=== PATIENT | female | born 1960 | race Caucasian/White ===

== ENCOUNTER → 2017-06-05 | Outpatient (REF) ==
[~2017-06-05] MED LIST: CALC-682 PO; CALCIUM; FLU20 PO; IBU600 PO; METHI10 PO; NOR5/325 PO; PEN250 PO; PER PO; [UNRECOGNIZED DRUG - CODE] PO
--- NOTE | 2017-06-05 13:45 | RADIOLOGY IMAGING REPORT ---
FACILITY: [facility] - [place] PATIENT NAME: Darling Rice : 1960 MR: [id number] V: [id number] EXAM DATE: ORDERING PHYSICIAN: JUANA DORSEY TECHNOLOGIST: Location: [facility] - [place] Patient: Darling Rice : 1960 Visit/Account:[id number] Date of Sevice: 06/05/2017 DEXA Scan Clinical history: Osteopenia, frequent steroid use. Comparison: DEXA scan from . LUMBAR SPINE: The bone mineral density (BMD) measured from L1-L4 correlates with a Z-score of -1 and a T-score of - 1.5 which is osteopenia as defined by the World Health Organization. The corresponding risk of fract ure in the lumbar spine is 3 times increased compared with a young adult reference population. This value has increased by 0.6 % since the prior study. More than 5% change is considered significant. HIP: Bone mineral density (BMD) measured in the LEFT total hip region correlates with a Z-score -1.6 and a T-score of -2.1 which is osteopenia as defined by the World Health Organization. The corresponding risk of fracture in the hip is 4-6 times increased compared to a young adult reference population. Th is value has decrease by 3.5 % since the prior study. More than 5% change is considered significant. T score left femoral neck -1.4 Bone mineral density (BMD) measured in the Femoral Neck region measures 0.837 g/cm?. IMPRESSION: 1. Lumbar spine: Osteopenia. There has been 0.6% increase in the bone mineral density since the pre vious exam. 2. Left Total Hip: Osteopenia. There has been 3.5% decrease in the bone mineral density since the p revious exam. 3. Femoral Neck: Bone Mineral Density is 0.837 g/cm? The next DEXA scan of this patient should include the following sites: L1-L4 and the left hip. FRAX? WHO Fracture Risk Assessment Tool link: <http://www.shef.ac.uk/FRAX/tool.jsp?locationValue=9> PLEASE NOTE: 1) The World Health Organization defines low BMD as follows: T-score Normal > -1 Osteopenia < -1 and > -2.5 Osteoporosis < -2.5 without fractures Established osteoporosis < -2.5 with fractures 2) In general, you may wish to consider: Diagnosis Treatment Follow-up DEXA Normal BMD Prevention 2-3 years Osteopenia Prevention/therapy 1-2 years Osteoporosis Therapy Yearly 3) Fracture risk estimated from the T-score is more accurate for vertebral fractures (often spontane ous) than for hip fractures. Report Dictated By: Marisabel Ta MD at 06/05/2017 1:38 PM Report E-Signed By: Marisabel Ta MD at 06/05/2017 1:40 PM WSN:[email or web address]
== END ==
LOC: RESP 01:52 → EDSTATUS 13:00
PROVIDERS: ATTEND Nurse Practitioner
DX: J44.0 Chronic obstructive pulmonary disease with (acute) lower respiratory infection (principal); G47.33 Obstructive sleep apnea (adult) (pediatric); M85.80 Other specified disorders of bone density and structure, unspecified site; J98.4 Other disorders of lung
CPT/HCPCS: 77080; 94060; 94726; 94729

== ENCOUNTER → 2017-08-02 | Outpatient (REF) ==
--- NOTE | 2017-08-02 17:37 | RADIOLOGY IMAGING REPORT ---
FACILITY: [facility] - [place] PATIENT NAME: Darling Rice : 1960 MR: [id number] V: [id number] EXAM DATE: ORDERING PHYSICIAN: JUANA DORSEY TECHNOLOGIST: Location: [facility] - [place] Patient: Darling Rice : 1960 Visit/Account:[id number] Date of Sevice: 08/02/2017 EXAMINATION: CT Thorax W/O Contrast With High Resolution imaging 08/02/2017 HISTORY: COPD. History of smoking. TECHNIQUE: High resolution CT chest protocol: A non-intravenous enhanced contiguous spiral scan was obtained through the chest. This was followed by inspiration and expiration 1 mm thick high-resolutio n axial images at 15 mm intervals, reconstructed using a high spatial resolution algorithm. One of the following dose optimization techniques was utilized in the performance of this exam: Autom ated exposure control; adjustment of the mA and/or kV according to the patient's size; or use of an i terative reconstruction technique. Specific details can be referenced in the facility's radiology C T exam operational policy. COMPARISON STUDIES: Chest x-ray 09/23/2015. FINDINGS: Lungs / pleura: Thickening of central bronchial oh. No substantial endobronchial material. No bron chiectasis. Lungs are well aerated apart from a mild degree of linear atelectasis or scarring in the lingular portion of the left upper lobe. No significant reticular interstitial lung disease. Mild emp hysematous lucencies. No parenchymal nodule or mass. Pleural spaces are clear. Mediastinum / ginny: negative Heart / pericardium: negative Vessels: Atherosclerosis including coronary calcifications along all 3 distributions. Musculoskeletal / Body wall: Degenerative changes in the spine. Lymph node assessment: negative Lower neck: negative Upper abdomen: negative IMPRESSION: 1. Bronchial wall thickening which may be chronic related to history of smoking although an acute exa cerbation bronchitis would be possible. 2. Mild emphysema. No findings of significant interstitial lung disease. 3. Coronary atherosclerosis is probably worse than average for age and gender. Report Dictated By: Donis Oden MD at 08/02/2017 5:27 PM Report E-Signed By: Donis Oden MD at 08/02/2017 5:34 PM WSN:[id number]
== END ==
LOC: CT 02:21
PROVIDERS: ATTEND Nurse Practitioner
DX: J44.9 Chronic obstructive pulmonary disease, unspecified (principal); Z87.891 Personal history of nicotine dependence
CPT/HCPCS: 71250

== ENCOUNTER 2017-12-27 15:41 | Emergency (ER) | payer SELFPAY ==
--- NOTE | 2017-12-27 15:45 | ER Report ---
History and Physical Time Seen By MD: 15:45 (GURU MARR DIRECTOR SALES-[employer]) Time Seen By MD: 15:55 (KRYSTLE PALACIO MD) HPI/ROS CHIEF COMPLAINT: Shortness of breath palpitations HISTORY OF PRESENT ILLNESS: 57-year-old female 35+ pack year smoker comes emergency Department today don't history of COPD on oxygen 2 L per nasal cannula 24 7 was at the outpatient [facility] for evaluation and Medications she was there was noted her pulse was in the 120s to 140s this is abnormal for her no history of cardiac abnormalities that she is aware of history of A. fib or a flutter patient is denying any chest pain but says she has been feeling somewhat more short of breath lately with exertional dyspnea patient denies any abdominal pain nausea vomiting diarrhea fever chills or additional complaints noted REVIEW OF SYSTEMS: Respiratory: Shortness of breath exertional dyspnea Cardiovascular: Palpitations no chest pain Gastrointestinal: No vomiting, no abdominal pain. Musculoskeletal: No back pain. Remainder of the 14 system rev: Yes (KRYSTLE PALACIO MD) Allergies: Coded Allergies: cyclobenzaprine (Verified Allergy, Unknown, 12/27/17) Home Meds Active Scripts Prednisone (PREDNISONE) 20 Mg Tablet, 40 MG PO QDAY, #10 TAB 0 Refills Prov:CRISTOBAL MORRISON MD 12/27/17 Reported Medications Meloxicam (MELOXICAM) 7.5 Mg Tablet, 15 MG PO QDAY 12/27/17 Albuterol Sulfate 90 Mcg/Act (PROAIR HFA 90 MCG/ACT) 8.5 Gm Hfa.aer.ad, 2 PUFF IH Q4-6H, INHALER 12/27/17 Acetaminophen (TYLENOL) 325 Mg Tablet, 325 MG PO, TAB 12/27/17 Fluticasone/Salmeterol (ADVAIR HFA 230-21 MCG INHALER) 1 Inh Inh, 1 INH INH 1- 2XD, INH 12/27/17 Discontinued Reported Medications Ibuprofen (Motrin) 600 Mg Tab, 600 MG PO TID, #30 05/10/11 Penicillin V Potassium (Penicillin Vk) 250 Mg Tab, 500 MG PO ACHS, #28 05/10/11 Oxycodone/Acetaminophen (OXYCODONE/ACETAMINOPHEN 5MG/325 MG) 5 Mg/325 Mg Tab, 1 - 2 TAB PO Q6H PRN, #30 05/10/11 Naproxen (Naproxen) 375 Mg Tablet, 375 MG PO, 0 Refills 01/04/07 Methimazole (Tapazole) 10 Mg Tab, 10 MG PO TID, 0 Refills 01/04/07 Reviewed Nurses Notes: Yes Old Medical Records Reviewed: Yes (KRYSTLE PALACIO MD) Hx Smoking: Yes (3-4 DAILY) Hx Substance Use Disorder: No Hx Alcohol Use: Yes ([employer]) ([facility]U MARR [facility] Constitutional Vital Sign - Last 24 Hours 12/27/17 15:47 Temp 99.7 Pulse 111 Resp 28 B/P (MAP) 121/99 Pulse Ox 74 O2 Delivery Room Air (KRYSTLE PALACIO MD) Physical Exam General Appearance: The patient is alert, has no immediate need for airway protection and no current signs of toxicity. No apparent distress Eyes: Pupils equal and round no injection. Respiratory: Distant breath sounds pursed lip breathing consistent with COPD exacerbation Cardiac: Irregular rhythm rate in the 120 to 1:30 range[ ] Gastrointestinal: Abdomen is soft and non tender, no masses, bowel sounds normal. Musculoskeletal: Neck: Neck is supple and non tender. Extremities have full range of motion and are non tender. Skin: No rashes or lesions. [ ] DIFFERENTIAL DIAGNOSIS: After history and physical exam differential diagnosis was considered for COPD exacerbation new-onset A. fib or a flutter myocardial infarction CHF exacerbation (KRYSTLE PALACIO MD) Medical Decision Making Data Points Result Diagram: 12/27/17 1601 12/27/17 1601 EKG/Imaging Imaging CTA CHEST WW/O CNTR (PULM ANG) COMPARISONS: CT chest without contrast dated August 02, 2017 ADDITIONAL PERTINENT HISTORY: Shortness of breath TECHNIQUE: Multiple axial images are obtained from the lung apices through the upper abdomen during the IV administration of contrast material. 2-D and 3-D reformatted images were obtained off the axial source data. One of the following dose optimization techniques was utilized in the performance of this exam: Automated exposure control; adjustment of the mA and/or kV according to the patient's size; or use of an iterative reconstruction technique. Specific details can be referenced in the facility's radiology CT exam operational policy. CONTRAST: 75mL of Isovue-370 FINDINGS: Lung parenchyma: Mild scarring involving the lingula. Minimal background emphysematous changes. No pulmonary masses or evidence of infiltrates. Scarring in the lingula is stable from previous exam. Pleural spaces: Negative. Heart, mediastinum and ginny: Negative. Cardiopulmonary vasculature: Pulmonary arterial structures are well opacified with contrast material. No evidence of pulmonary emboli. Mild atherosclerotic disease of the thoracic aortic arch and the origins of the great vessels. Central airways: Negative Thyroid, supra- clavicular, axillary regions: Negative. Surrounding soft tissues: Negative. Upper abdominal structures: Negative. Osseous structures: Spondylitic change involving the thoracic spine. No bony fractures. IMPRESSION: 1. No evidence of acute cardiopulmonary disease. 2. No evidence of pulmonary emboli. 3. Stable scarring involving the lingula. Report Dictated By: Khoi Hilario MD at 12/27/2017 5:30 PM (CRISTOBAL MORRISON MD) ED Course/Re-evaluation ED Course I assumed care of this patient at shift change after discussion with Dr. Palacio. CT angiogram of the chest done and negative. She feels better and would like to return home. We will start her on Prednisone 40mg once a day for 5 days. Recommended follow-up with the [facility]. No other changes at this time. Decision to Disposition Date: Dec 27, 2017 Decision to Disposition Time: 17:42 (CRISTOBAL MORRISON MD) Depart Departure Latest Vital Signs Vital Signs Date Time Temp Pulse Resp B/P (MAP) Pulse Ox O2 Delivery O2 Flow Rate FiO2 12/27/17 15:47 99.7 111 28 121/99 74 Room Air (KRYSTLE PALACIO MD) Impression: Primary Impression: COPD (chronic obstructive pulmonary disease) Condition: Improved Disposition: HOME OR SELF-CARE Referrals: JUANA DORSEY (PCP) New Scripts Prednisone (PREDNISONE) 20 Mg Tablet 40 MG PO QDAY, #10 TAB 0 Refills Prov: CRISTOBAL MORRISON MD 12/27/17 Patient Instructions: COPD (Chronic Obstructive Pulmonary Disease) (ED) Additional Instructions: No changes in medications at this time. Rest and increase fluid intake. Take Prednisone 20mg tablets, 2 tablets once a day for 5 days. Problem Qualifiers Primary Impression: COPD (chronic obstructive pulmonary disease) COPD type: unspecified COPD Qualified Codes: J44.9 - Chronic obstructive pulmonary disease, unspecified SONDGEROTH,GURU L DIRECTOR SALES-BC Dec 27, 2017 15:45 KRYSTLE PALACIO MD Dec 27, 2017 15:59 CRISTOBAL MORRISON MD Dec 27, 2017 17:11
[2017-12-27] MEDS ORDERED: MELO-205 PO (16:19)
[2017-12-27] MEDS ORDERED: ACET-1966 PO (16:19)
[2017-12-27] MEDS ORDERED: ADV230RPT INH (16:19)
[2017-12-27] MEDS ORDERED: ALBU8.5H IH (16:19)
[2017-12-27 16:25] LABS: PLATELET COUNT, AUTOMATED 245 K/uL (150-450)
[2017-12-27] MEDS ORDERED: methylPREDNIS SUCC 125 MG/2ML IVP ONE (16:35)
--- NOTE | 2017-12-27 16:49 | RADIOLOGY IMAGING REPORT ---
FACILITY: [facility] PATIENT NAME: Darling Rice : 1960 MR: [id number] V: [id number] EXAM DATE: ORDERING PHYSICIAN: KRYSTLE PALACIO TECHNOLOGIST: Location: [facility] Patient: Darling Rice : 1960 Visit/Account:[id number] Date of Sevice: 12/27/2017 CHEST PA AND LAT INDICATION: Shortness of breath COMPARISON: 09/23/2015 FINDINGS: Heart size within normal limits. There is no focal infiltrate or lobar consolidation. There is stable mild pulmonary hyperexpansion There is no pneumothorax or pleural effusion. IMPRESSION: 1. No acute cardiopulmonary process. Stable COPD Report Dictated By: Domenico Reyes at 12/27/2017 4:43 PM Report E-Signed By: Domenico Reyes at 12/27/2017 4:44 PM WSN:[id number]
[2017-12-27] MEDS ORDERED: NS(*) 0.9% 50 ML BAG 50 ML ONE (16:59)
[2017-12-27] MEDS ORDERED: IOPAMIDOL 76% 75 ML INFUS BTL 75 ML ONE (16:59)
[2017-12-27 17:18] VITALS: BP 120/76
--- NOTE | 2017-12-27 17:37 | RADIOLOGY IMAGING REPORT ---
[place] [facility] [place] Darling Rice : 1960 MR: [id number] V: [id number] EXAM DATE: ORDERING PHYSICIAN: KRYSTLE PALACIO TECHNOLOGIST: Location: [facility] Patient: Darling Rice : 1960 Visit/Account:[id number] Date of Sevice: 12/27/2017 CTA CHEST WW/O CNTR (PULM ANG) COMPARISONS: CT chest without contrast dated August 02, 2017 ADDITIONAL PERTINENT HISTORY: Shortness of breath TECHNIQUE: Multiple axial images are obtained from the lung apices through the upper abdomen during t he IV administration of contrast material. 2-D and 3-D reformatted images were obtained off the axial source data. One of the following dose optimization techniques was utilized in the performance of t his exam: Automated exposure control; adjustment of the mA and/or kV according to the patient's size; or use of an iterative reconstruction technique. Specific details can be referenced in the [facility] exam operational policy. CONTRAST: 75mL of Isovue-370 FINDINGS: Lung parenchyma: Mild scarring involving the lingula. Minimal background emphysematous changes. No pu lmonary masses or evidence of infiltrates. Scarring in the lingula is stable from previous exam. Pleural spaces: Negative. Heart, mediastinum and ginny: Negative. Cardiopulmonary vasculature: Pulmonary arterial structures are well opacified with contrast material. No evidence of pulmonary emboli. Mild atherosclerotic disease of the thoracic aortic arch and the or igins of the great vessels. Central airways: Negative Thyroid, supra- clavicular, axillary regions: Negative. Surrounding soft tissues: Negative. Upper abdominal structures: Negative. Osseous structures: Spondylitic change involving the thoracic spine. No bony fractures. IMPRESSION: 1. No evidence of acute cardiopulmonary disease. 2. No evidence of pulmonary emboli. 3. Stable scarring involving the lingula. Report Dictated By: Khoi Hilario MD at 12/27/2017 5:30 PM Report E-Signed By: Khoi Hilario MD at 12/27/2017 5:34 PM WSN:[id number]
[2017-12-27] MEDS ORDERED: PRED20TA6 PO (17:47)
[2017-12-27] MEDS ORDERED: predniSONE 20 MG TAB PO ONE (17:50)
--- NOTE | 2017-12-27 22:24 | EKG ---
FACILITY: [facility] PATIENT NAME: NATE BOONE : [id number] MR: [id number] V: [id number] EXAM DATE: ORDERING PHYSICIAN: KRYSTLE PALACIO TECHNOLOGIST: KRISSY Test Reason : SOB Blood Pressure : / mmHG Vent. Rate : 109 BPM Atrial Rate : 109 BPM P-R Int : 130 ms QRS Dur : 080 ms QT Int : 378 ms P-R-T Axes : 081 098 069 degrees QTc Int : 509 ms Sinus tachycardia with frequent premature ventricular complexes Rightward axis Prolonged QT Septal infarct , age undetermined Abnormal ECG No previous ECGs available Confirmed by Arnaldo Prieto ([id number]) on 12/27/2017 10:55:43 PM Referred By: KRYSTLE PALACIO Confirmed By:Arnaldo Lamb
== END 2017-12-27 17:58 | disposition home or self-care (01) ==
LOC: ER 15:49
DX: J44.9 Chronic obstructive pulmonary disease, unspecified (principal); F17.210 Nicotine dependence, cigarettes, uncomplicated; R00.0 Tachycardia, unspecified; I49.3 Ventricular premature depolarization
CPT/HCPCS: 36600; 71046; 71275; 82803; 83880; 84484; 85025; 85379; 93005; 96374; 99284; J2930; J7050; Q9967; 82040; 82247; 82310; 82374; 82435; 82565; 82947; 84075; 84132; 84155; 84295; 84450; 84460; 84520

== ENCOUNTER → 2018-08-23 | Outpatient (REF) ==
[~2018-08-23] MED LIST changes: +ACET-1966 PO; +ADV230RPT INH; +ALBU8.5H IH; +MELO-205 PO; +PRED20TA6 PO
--- NOTE | 2018-08-24 20:24 | RT HOLTER TEST ---
FACILITY: [facility] - [place] PATIENT NAME: NATE BOONE : [id number] MR: [id number] V: [id number] EXAM DATE: ORDERING PHYSICIAN: JUANA DORSEY TECHNOLOGIST: DONTA Hook-up date: 2018-08-23 12:58:00 Duration: 23:43:00 Test Indications: 500.8 Medications: 926166 QRS complexes 6296 Ventricular ectopics which represent 5 % of total QRS comp. 37 Supraventricular ectopics which represent <1 % of total QRS comp. * Paced QRS complexes which represent % of total QRS comp. VENTRICULAR ECTOPY 6171 Isolated 358 Bigeminal Cycles 58 Couplets 3 Runs 9 Beats in Runs 3 Beats LONGEST at 129 BPM at 14:51:31 2018-08-23 3 Beats FASTEST at 211 BPM at 10:50:29 2018-08-24 SUPRAVENTRICULAR ECTOPY 37 Isolated 0 Couplets 0 Runs 0 Beats in Runs * Beats LONGEST at * BPM at :: -- * Beats FASTEST at * BPM at :: -- HEART RATES 50 MIN at 23:06:49 2018-08-23 87 AVG 152 MAX at 11:49:30 2018-08-24 LONGEST RR 1.416 secs at 02:09:41 2018-08-24 S-T LEVELS Channel 1 -12.800 mm MIN at 12:58:00 2018-08-23 -12.800 mm MAX at 12:58:00 2018-08-23 Channel 2 -12.800 mm MIN at 12:58:00 2018-08-23 -12.800 mm MAX at 12:58:00 2018-08-23 Channel 3 -12.800 mm MIN at 12:58:00 2018-08-23 -12.800 mm MAX at 12:58:00 2018-08-23 Test dominated by sinus rhythm. Occasional PVC with runs of bigeminal PVC, isolated PVC, infrequent short runs PVC. Very infrequent SVE. Confirmed by Arnaldo Prieto ([id number]) on 08/24/2018 8:24:08 PM Referred By: Overread By: Arnaldo Lamb
== END ==
LOC: RESP 02:17 → EDSTATUS 13:00
PROVIDERS: ATTEND Nurse Practitioner
DX: R00.8 Other abnormalities of heart beat (principal)
CPT/HCPCS: 93225; 93226